=== PATIENT | female | born 1940 | race Caucasian/White ===

== ENCOUNTER 2019-08-02 17:52 | Inpatient (IN) | payer BC ==
[~2019-08-02] VITALS: Ht 165.1 cm; Wt 59.0 kg
[2019-08-02 17:59] VITALS: BP 103/76
[2019-08-02 20:03] LABS: ABSOLUTE MONOCYTES 0.7 thou/uL (0.0-1.2); BASOPHILS 0.4 %; EOSINOPHILS 0.1 %; HEMATOCRIT 33.4 % (37.0-47.0); HEMOGLOBIN 11.1 gm/dL (12.0-15.0); LYMPHOCYTES 9.6 %; MCH 26.9 pg (26.0-34.0); MCHC 33.1 g/dL (28.0-37.0); MCV 81.4 fL (80.0-100.0); MONOCYTES 6.4 %; MPV 7.4 fl. (7.2-11.1); NUCLEATED RBCS 0 /100WBC; PLATELET COUNT* 271 thou/uL (150-400); POLYS 83.5 %; RBC 4.11 mil/uL (4.20-5.00); RDW-CV 15.3 % (10.5-14.5); WBC 10.7 thou/uL (4.0-11.0)
[2019-08-02 20:10] LABS: ANION GAP 10 mmol/L (7-16); BUN 20 mg/dL (7-18); CALCIUM 8.9 mg/dL (8.5-10.1); CHLORIDE 102 mmol/L (98-107); CO2 27 mmol/L (21-32); CREATININE 0.8 mg/dL (0.6-1.3); GLUCOSE 135 mg/dL (70-99); POTASSIUM 3.6 mmol/L (3.5-5.1); SODIUM 139 mmol/L (136-145)
[2019-08-02 20:19] LABS: ALBUMIN 3.4 g/dL (3.4-5.0); ALKALINE PHOSPHATASE 213 U/L (46-116); SGOT 16 U/L (15-37); SGPT 17 U/L (30-65); TOTAL BILIRUBIN 0.3 mg/dL (<0.1-1.0); TOTAL PROTEIN 6.7 g/dL (6.4-8.2); TROPONIN-I LEVEL <0.06 ng/mL (<0.06)
[2019-08-02 20:54] LABS: URINE BILIRUBIN NEGATIVE (Negative); URINE BLOOD NEGATIVE (Negative); URINE CLARITY CLEAR; URINE COLOR YELLOW; URINE GLUCOSE-RANDOM NEGATIVE (Negative); URINE KETONES NEGATIVE (Negative); URINE LEUKOCYTES-REFLEX NEGATIVE (Negative); URINE NITRITE-REFLEX NEGATIVE (Negative); URINE PROTEIN NEGATIVE (Negative); URINE UROBILINOGEN 0.2 E.U./dl (0.2-1.0)
[2019-08-02] MEDS ORDERED: XANAX 0.25 MG0.25 MG PO (21:53)
[2019-08-02] MEDS ORDERED: BAYER CHEWABLE81 MG PO (22:23)
[2019-08-02] MEDS ORDERED: COLACE100 MG PO (22:23)
[2019-08-02] MEDS ORDERED: BENAZEPRIL-HCT1 EA10 PO (22:23)
[2019-08-02] MEDS ORDERED: BUSPIRONE HCL10 MG PO (22:23)
[2019-08-02] MEDS ORDERED: I-VITE PROTECT1 EACH PO (22:24)
[2019-08-02] MEDS ORDERED: LASIX 20 MG TAB20 MG PO (22:24)
[2019-08-02] MEDS ORDERED: PEPCID40 MG PO (22:24)
[2019-08-02] MEDS ORDERED: POTASSIUM20 PO (22:24)
[2019-08-02] MEDS ORDERED: IRON325 PO (22:24)
[2019-08-02] MEDS ORDERED: SERTRALINE HCL100 MG PO (22:25)
[2019-08-02] MEDS ORDERED: NORCO 5-325 TA1 EAC1 PO (22:25)
[2019-08-02 22:29] VITALS: BP 110/56
[2019-08-02 22:43] LABS: APTT 26.8 Seconds (25.0-31.3); PROTIME 10.7 Seconds (9.20-11.50)
--- NOTE | 2019-08-03 | NUR ---
ASSUMED CARE OF PT
[2019-08-03 03:12] LABS: ABSOLUTE LYMPHOCYTES 1.2 thou/uL (0.8-5.3); ABSOLUTE MONOCYTES 0.8 thou/uL (0.0-1.2); ABSOLUTE NEUTROPHILS 7.4 thou/uL (1.6-8.1); BASOPHILS 0.4 %; EOSINOPHILS 0.1 %; HEMATOCRIT 29.8 % (37.0-47.0); HEMOGLOBIN 9.8 gm/dL (12.0-15.0); LYMPHOCYTES 12.9 %; MCH 26.7 pg (26.0-34.0); MCHC 32.8 g/dL (28.0-37.0); MCV 81.4 fL (80.0-100.0); MONOCYTES 8.5 %; MPV 7.2 fl. (7.2-11.1); NUCLEATED RBCS 0 /100WBC; PLATELET COUNT* 247 thou/uL (150-400); POLYS 78.1 %; RBC 3.66 mil/uL (4.20-5.00); RDW-CV 15.6 % (10.5-14.5); WBC 9.5 thou/uL (4.0-11.0)
[2019-08-03 03:24] LABS: CALCIUM 8.9 mg/dL (8.5-10.1); CREATININE 0.6 mg/dL (0.6-1.3); POTASSIUM 3.9 mmol/L (3.5-5.1)
[2019-08-03 04:37] VITALS: BP 98/61
--- NOTE | 2019-08-03 06:26 | NUR ---
ORTHO CONSULT CALLED TO ANSWERING SERVICE AND COMPLETED IN COMPUTER.
[2019-08-03 09:54] VITALS: BP 104/59
[2019-08-03 14:54] VITALS: BP 108/61; BP 140/76
[2019-08-03 16:00] VITALS: BP 108/61
--- NOTE | 2019-08-03 16:42 | EKG ---
[place] [address] ELECTROCARDIOGRAM REPORT Name: MARTHA LAZO Room: [address] ADM IN M.R.#: [id number] Admission: 08/02/19 Attend Phys: Alex Jeffery MD Discharge: Date of : 38 Report #: [id number] THIS REPORT FOR: //name// [facility] ED Test Date: 2019-08-02 Test Time: 17:58:50 Pat Name: MATRHA LAZO Department: Room: [facility] Gender: F [employer] Receptionist: MEDIC STUDENT : 1940 Requested By: Nyla Tee Order Number: [id number] MD: Aubrey Montero Measurements Intervals [place] Rate: 79 P: 57 SD: 146 QRS: 18 QRSD: 100 T: 27 QT: 391 QTc: 449 Interpretive Statements Sinus rhythm Low voltage, precordial leads No previous ECG available for comparison Electronically Signed On 08-03-2019 16:41:58 CDT by Aubrey Montero [email or web address] <ELECTRONICALLY SIGNED> By: Aubrey Montero MD, [facility] 08/03/19 1641 1758 175 Aubrey Montero MD, FACC /EPI
--- NOTE | 2019-08-03 18:33 | NUR ---
PATIENT ARRIVED TO UNIT AT 1454 FROM PACU. PATIENT ALERT BUT NOT ANSWERING ANY QUESTIONS. PATIENTS SON AT BEDSIDE AND ANSWERING QUESTIONS FOR HER. PATIENT HAS BRUISING ON THE RIGHT SIDE OF HER FACE FROM A FALL. VSS ON 3 LITERS 02. PATIENTS SON STATED THAT SHE DOES NOT WEAR 02 AT HOME. HE ALSO STATED THAT SHE WAS SUPPOSED TO BE USING A WALKER AFTER HER HIP FRACTURE REPAIR BUT THAT SHE IS FORGETFUL AND THAT IS WHY SHE FELL, SHE WAS NOT USING IT. NO COMPLAINTS OF PAIN. FALL PRECAUTIONS IN PLACE. CALL LIGHT WITHIN REACH. WILL CONTINUE TO MONITOR.
[2019-08-03 21:40] VITALS: BP 110/66
[2019-08-04] VITALS (9 sets, daily range): BP systolic 76–120; BP diastolic 30–62
[2019-08-04 03:07] LABS: ABSOLUTE LYMPHOCYTES 0.9 thou/uL (0.8-5.3); ABSOLUTE MONOCYTES 1.4 thou/uL (0.0-1.2); BASOPHILS 0.3 %; CALCIUM 8.9 mg/dL (8.5-10.1); CREATININE 0.6 mg/dL (0.6-1.3); HEMATOCRIT 24.1 % (37.0-47.0); HEMOGLOBIN 8.1 gm/dL (12.0-15.0); LYMPHOCYTES 10.1 %; MCHC 33.5 g/dL (28.0-37.0); MCV 80.6 fL (80.0-100.0); MONOCYTES 14.9 %; MPV 7.3 fl. (7.2-11.1); NUCLEATED RBCS 0 /100WBC; PLATELET COUNT* 232 thou/uL (150-400); POLYS 74.7 %; POTASSIUM 4.1 mmol/L (3.5-5.1); RBC 2.99 mil/uL (4.20-5.00); RDW-CV 15.2 % (10.5-14.5); WBC 9.3 thou/uL (4.0-11.0)
--- NOTE | 2019-08-04 13:27 | OP ---
[address] [address] OPERATIVE REPORT Name: MARTHA LAZO Room: [address] IN M.R.#: [id number] Admission: 08/02/19 Attend Phys: Alex Jeffery MD Discharge: Date of : 38 Report #: [id number] THIS REPORT FOR: //name// CC: Alex Colon Lockhart DATE OF SERVICE: 08/03/2019 PREOPERATIVE DIAGNOSIS: Right shoulder surgical neck comminuted 3-part fracture. POSTOPERATIVE DIAGNOSIS: Right shoulder surgical neck comminuted 3-part fracture. SURGERY PERFORMED: Open reduction and internal fixation of the right humerus. SURGEON: Daryn Nuñez DO CONE RUNNER: Dr. Stephens. SECOND PARAFFIN PLANT OPERATOR: Dr. Tinsley. ANESTHESIA: General anesthetic. ANTIBIOTICS: The patient did receive Ancef 2 grams IV piggyback preoperatively. ESTIMATED BLOOD LOSS: 200 mL. COMPLICATIONS: None. DRAINS: None. SPECIMENS: None. GROSS FINDINGS: Prior to surgery, this patient had sustained a ground level fall without the use of her walker and complained of right shoulder pain, presented to the Emergency Room with a displaced fracture as stated above. The patient's son who is durable power of compliance attorney was present as well. The patient also had previously 2 months ago fractured her femur at another institution and had to have that surgically fixated. Her underlying dementia per her son is part of the problem as she tries to get up and ambulate without the walker. At this point in time, the surgery correlated exactly with the radiographic findings and post-placement of the Jeremi side plate for internal fixation demonstrated near anatomic reduction in the two views taken today. SURGERY IN DETAIL: The patient was taken to the operating [place] [address] OPERATIVE REPORT Name: MARTHA LAZO Room: [address] IN ..#: [id number] Admission: 08/02/19 Attend Phys: Alex Jeffery MD Discharge: Date of : 38 Report #: [id number] the table, given a general anesthetic and then while on the T-Max table was put in a 30-degree inclined position. She underwent a chlorhexidine prep and sterile draping for right arm shoulder surgery. At this point in time, the patient did have a timeout called and verified by everybody in the room in agreement for the right shoulder. Surgery now began with a deltopectoral incision with a 10 blade scalpel through the skin and subcutaneous tissues, retracting the cephalic vein laterally. Through this dissection, it was an obviously displaced 100% fracture, correlating with the radiographic findings in the ER. Upon removal of the biceps tendon, which was interposed between the fracture fragments after I did tenotomy of that, the fracture was more mobile and it was easily reduced now. Once this was accomplished, I did hold a Jeremi side plate to the humerus with K-wire fixation and it did demonstrate satisfactory position and the views taken. I now elected to transfix the side plate into position using AO technique. The patient did have a cortical fractured fragment of approximately 2 cm in length x 1 cm width that was punched down into the anterior aspect of the humerus with definitely a bone void. I did do Vitoss bone grafting and then pulled out window that she compressed down into the fracture site and put it back over top to seal it over. At this point in time, it had been irrigated with normal saline prior to closure. Her subcutaneous tissues were loosely closed with 2-0 Monocryl in inverted fashion followed with Stratafix and Dermabond Mepilex dressing to the right shoulder. The patient per Anesthesia tolerated the procedure well. I attest, I was present for all critical aspects of the surgery. Needle, instrument and sponge counts were correct. <ELECTRONICALLY SIGNED> By: Daryn Nuñez DO 08/04/19 1327 1306 [id number] Nuñez DO /merrill
--- NOTE | 2019-08-04 16:45 | NUR ---
BP LOW. PT RESTING IN BED. DR HURTADO NOTIFIED. IV BOLUS STARTED
--- NOTE | 2019-08-04 17:13 | NUR ---
PT UP IN CHAIR MOST OF SHIFT. PARTICIPATES IN THERAPIES. PAIN WELL CONTROLLED WITH PO MEDS. SLING TO RIGHT ARM. TOLERATING PO WELL. POOR FLUID INTAKE. ENCOURAGED PO FLUIDS. SORTO DRAINING CLEAR YELLOW URINE.
--- NOTE | 2019-08-04 17:45 | NUR ---
PER RN, PT.AND HER LIVE TOGETHER AT THE [facility] IN AN ASSISTED LIVING APT. BOTH HAVE DEMENTIA. SHE HAS A WALKER AND WC. WHEN SHE GOT UP DURING THE NIGHT SHE DID NOT USE HER WALKER AND FELL. SHE HAD FX HER HIP SEVERAL MONTHS AGO AND WENT TO [facility] FOR A SKILLED STAY. THEY WOULD LIKE FOR HER TO GO BACK THERE FOR SNF AT DISCHARGE. FAXED REFERRAL TO [facility]. CM WILL FOLLOW.
[2019-08-04 21:12] LABS: HEMATOCRIT 19.4 % (37.0-47.0); HEMOGLOBIN 6.5 gm/dL (12.0-15.0)
[2019-08-05] VITALS (9 sets, daily range): BP systolic 68–105; BP diastolic 33–58
--- NOTE | 2019-08-05 07:05 | NUR ---
PATIENT ALERT AND ORIENTED X 1-2. LESS ANXIOUS TONIGHT. LOW BP PERSISTED POST BOLUS FROM DAYSHIFT. PHYSICIAN NOTIFED WITH ORDERS FOR FURTHER BOLUS AND STAT HH WHICH RESULTED CRITICAL AT 2.7. FURTHER ORDERS FOR BLOOD TRANSFUSION WHICH WAS PROVIDED THROUGHOUT THE NIGHT AND COMPLETED AT 0650. PATIENT TOLERATED WELL. POST TRANSFUSION LAB PENDING. LAST BP 98/42. CONTINUOUS OXIMITRY WITH TRANSFUSION AND O2 INITIALLY AT 2L/MIN FOR SLEEPING SAT OF 90%. O2 WEANED OFF DURING SECOND UNIT AND SATS REMAINED 98-100% ON ROOM AIR. DRESSING RIGHT ARM CLEAN AND DRY. SLING PRESENT. CIRCULATION CHECKS WITHIN NORMAL LIMITS. PAIN CONTROL ADEQUATE WITH SCHEDULED NAPROXIN AND TYLENOL. CONTINUE TO MONITOR.
[2019-08-05 10:05] LABS: ABSOLUTE LYMPHOCYTES 0.8 thou/uL (0.8-5.3); ABSOLUTE MONOCYTES 0.7 thou/uL (0.0-1.2); ABSOLUTE NEUTROPHILS 4.8 thou/uL (1.6-8.1); BASOPHILS 0.6 %; EOSINOPHILS 0.4 %; HEMATOCRIT 26.2 % (37.0-47.0); HEMOGLOBIN 8.9 gm/dL (12.0-15.0); LYMPHOCYTES 11.9 %; MCH 28.5 pg (26.0-34.0); MCHC 34.1 g/dL (28.0-37.0); MCV 83.5 fL (80.0-100.0); MONOCYTES 11.6 %; MPV 8.2 fl. (7.2-11.1); NUCLEATED RBCS 0 /100WBC; POLYS 75.5 %; RBC 3.14 mil/uL (4.20-5.00); RDW-CV 14.8 % (10.5-14.5); WBC 6.4 thou/uL (4.0-11.0)
[2019-08-05 10:06] LABS: PLATELET COUNT* 151 thou/uL (150-400)
[2019-08-05 10:18] LABS: CALCIUM 8.7 mg/dL (8.5-10.1); CREATININE 0.7 mg/dL (0.6-1.3); POTASSIUM 3.6 mmol/L (3.5-5.1)
--- NOTE | 2019-08-05 15:34 | NUR ---
[facility] CALLED AND SAID THEY DO NOT HAVE ANY SKILLED BED AVAILABILITY AND PROBABLY WILL NOT UNITL NEXT WEEK. MET WITH SON,MAI, WHO IS HER DPOA AND ELEAZAR PT'S D-I-L. AT BEDSIDE ALSO. PT.AND BOTH HAVE DEMENTIA. GAVE LIST OF CONTRACTED SNFS FOR PT.'S INSURANCE. SON STATED THEY WANT TO TOUR OTHER FACILITIES TO MAKE A GOOD CHOICE FOR PT. ASKED THEM TO CHOOSE 2 FACILITIES AFTER TOURING AND I WOULD MAKE REFERRALS. MAI EXPRESSED CONCERN THAT HE DID NOT WANT PT.DISCHARGED IF SHE WAS NOT STABLE. ASSURED HIM SHE WOULD NEED TO BE STABLE OR SNF WOULD SEND HER RIGHT BACK TO HOSPITAL. HE SAID WE NEED .THEY ARE AWARE THAT INSURANCE WILL NEED TO AUTHORIZE SKILLED STAY, WELL. ASKED TO TALK WITH CURTIS KEARNS. INFORMATION RELAYED TO HER.
[2019-08-05 16:11] LABS: HEMATOCRIT 23.9 % (37.0-47.0); HEMOGLOBIN 8.2 gm/dL (12.0-15.0)
--- NOTE | 2019-08-05 19:00 | NUR ---
PATIENT CONFUSED, FORGETFUL THRU SHIFT, TEARFUL AT TIME. FAMILY IN PERIODICALLY THRU SHIFT, STATE PATIENT IS TEARFUL QUITE A BIT. SEE MAR. SEE VS. SORTO CATH INTACT, PATENT, YELLOW URINE NOTED IN BAG. NEW IV PLACED, SEE INTERVENTION. IV FLUIDS CURRENTLY INFUSING ORDERED. PATIENT EATING FAIR THIS SHIFT. BIOLOGY INSTRUCTOR AND BLUNGER LOADER NOTIFIED OF BP READINGS THIS AM, DR NOTIFIED. REPORT GIVEN TO NEXT SHIFT. HRLY ROUNDS DONE.~TJRN
[2019-08-06 00:09] VITALS: BP 109/55
[2019-08-06 04:00] VITALS: BP 111/57
[2019-08-06 04:06] LABS: HEMATOCRIT 25.1 % (37.0-47.0); HEMOGLOBIN 8.5 gm/dL (12.0-15.0)
--- NOTE | 2019-08-06 06:58 | NUR ---
Oriented x 1 most of this shift. She appears to not understand where she was and was tearful. We did explain to her what was going on and she did relax. Pain meds given x 3 this shift and antianxiety med given x 1. Dressing to her Rt shoulder was dry and intact and sling in place and ice pack placed. Vitals have been stable,O2 sat 97%. She has slept well.
[2019-08-06 08:20] VITALS: BP 118/60
--- NOTE | 2019-08-06 08:30 | NUR ---
SPOKE WITH MAI,PT.S SON. HE HAS NOT HAD A CHANCE TO TOUR FACILITIES BUT PLANS TO THE AM. ASKED HIM TO LET CM PROGRAM COORDINATOR EXECUTIVE EDUCATION KNOW WHICH FACILITIES HE WOULD LIKE REFERRAL MADE TO 1ST AND 2ND CHOICE. HE SAID HE WOULD.
[2019-08-06] MEDS ORDERED: XANAX 0.25 MG0.25 MG PO (10:17)
[2019-08-06] MEDS ORDERED: TRAMADOL 50 MG50 MG PO (10:17)
--- NOTE | 2019-08-06 14:49 | NUR ---
SPOKE WITH PT'S SON/MAI. HE CHOSE [facility] OR [facility] FOR SNF. HE DOESN'T WANT [facility] OR [facility]. WILL NEED TO GET INSURANCE AUTH ALSO AND DO NOT ANTICIPATE IT WILL BE ABLE TO BE OBTAINED BEFORE [facility]. CALLED AND FAXED REFERRALS TO [facility] AND [facility]
--- NOTE | 2019-08-06 16:57 | NUR ---
PATIENT ALERT AND ORIENTED TO SELF AND PLACE. CONFUSED AND ANXIOUS AT TIMES. VITAL SIGNS STABLE ON ROOM AIR. IV PATENT AND SALINE LOCKED. PAIN BEING MANAGED WITH PO MEDICATION. DENIES NAUSEA AT THIS TIME. FALL PRECAUTIONS IN PLACE AND BED ALARM ON. SLING/IMMOBILIZER IN PLACE TO RIGHT ARM. ICE PACKS IN PLACE. HOURLY ROUNDS MAINTAINED THROUGHOUT THE SHIFT. CALL LIGHT WITHIN REACH. NURSING WILL CONTINUE TO MONITOR.
[2019-08-06 22:30] VITALS: BP 114/65
--- NOTE | 2019-08-07 07:14 | NUR ---
PT ORIENTED X 2-3. MEDS GIVEN ORDERED. PAIN MANAGED BY HYDROCODONE. C/O PAIN BUT UNABLE TO RATE. DRESSING TO RT SHOULDER C/D/I. PT DIDNT WANT TO WEAR SLING BECAUSE ITS ITCHY. HOURLY ROUNDING COMPLETED. WILL CONTINUE TO MONITOR.
[2019-08-07 08:10] VITALS: BP 108/79
--- NOTE | 2019-08-07 18:17 | NUR ---
ASSUMED CARE OF PATIENT AT APPROX 0730. ALERT AND ORIENTED X4. VSS ON ROOM AIR. PAIN MANAGED WIHT ORAL PAIN MEDICATIONS. PATIENT UP TO THE COMMODE WITH MODERATE ASSIST, VOIDING WITHOUT ISSUE. GAVE PATIENT BED BATH TODAY AND WASHED HER HAIR. NOTED SOME RED AREAS ON PATIENTS BACK THAT SHE STATED ARE ITCHING HER. APPLIED LOTION AFTER HER BATH AND NO OTHER COMPLAINTS OF ITCHING. RIGHT ARM IS SEVERELY SWOLLEN, ELEVATED ON 2 PILLOWS AND ICE APPLIED. NOTED BRUISING TO PATIENTS FACE, RIGHT ARM AND FLANK AREA, FROM FALL PRIOR TO ADMISSION. PATIENT ASSISTED WITH FOOD TRAY PREP AND ENGOURAGED TO EAT HER FOOD, PATIENT EATSA BETTER WHEN ENCOURAGED, ATE 50% OF BREAKFAST, 30% OF LUNCH, AND 90% OF HER DINNER. FALL PRECAUTIONS IN PLACE. CALL LIGHT WITHIN REACH. HOURLY ROUNDS COMPLETED. WILL CONTINUE TO MONITOR.
[2019-08-07 21:05] VITALS: BP 104/58
[2019-08-08 04:00] VITALS: BP 106/59
--- NOTE | 2019-08-08 04:59 | NUR ---
PATIENT ALERT AND ORIENTED X 1-3. TEARFUL AT HS. ABLE TO STATE WHEN SHE NEEDS TO VOID. UP TO BSC WITH MAX ASSIST OF 2. ANXIETY CONTRIBUTING TO INABILITY TO FOLLOW DIRECTIONS. RUE WITH SLING WHEN UP. ELEVATED ON PILOWS IN BED. EDEMA PERSISTS ESPECIALLY INTO THE HAND. DRESSING RIGHT UPPER ARM/SHOULDER CLEAN AND DRY. VITAL SIGNS STABLE. CONTINUE TO MONITOR.
[2019-08-08 08:00] VITALS: BP 119/62
[2019-08-08 15:12] VITALS: BP 109/57
--- NOTE | 2019-08-08 19:55 | NUR ---
ASSUMED CARE OF PATIENT AT APPROX 0730. ALERT AND ORIENTED X2-3. ASSESSMENT COMPLETED AND CHARTED. VSS ON ROOM AIR. PAIN MANAGED WITH ORAL MEDICATIONS. PATIENT VERY ANXIOUS AND TEARFUL ALL THROUGHOUT SHIFT TODAY, THIS IS HER BASELINE. ATTEMPTS TO ALEVIATE ANXIETY BY REASSURANCE, REDIRECTION AND USE OF ANTI-ANXIETY MEDICATIONS. PATIENT IS UP MAX ASSIST TO BEDSIDE COMMODE, SHE IS VERY FEARFUL OF FALLING AND WILL NOT ASSIST IN HER TRANSFERS. MEPILEX TO RIGHT ARM IS CLEAN, DRY, AND INTACT. THERE IS BRUISING TO THE RIGHT UPPER AND LOWER ARM, FLANK AND TO THE FACE. THERE IS SEVERE SWELLING TO THE ENTIRETY OF THE RIGHT ARM, ARM ELEVATED AND ICED. PATIENT NEEDS REINFORCEMENT OF EDUCATION TO KEEP THE ARM ELEVATED AND ICED IN ORDER TO REDUCE SWELLING. FALL PRECAUTIONS IN PLACE. CALL LIGHT WITHIN REACH. HOURLY ROUNDS COMPLETED. NURSING WILL CONTINUE TO MONITOR.
[2019-08-08 20:26] VITALS: BP 148/76
[2019-08-09 04:00] VITALS: BP 111/61
--- NOTE | 2019-08-09 05:32 | NUR ---
PT ANXIOUS, CONFUSED, TEARFUL AT START OF SHIFT. XANAX GIVEN WITH HS MEDS AND PT ABLE TO SLEEP WELL UNTIL 0400. PO PAIN MED GIVEN FOR R ARM PAIN WITH GOOD RESULT, ICE PACKS AND ELEVATION ON PILLOW. R ARM REMAINS BRUISED, EDEMATOUS. ABLE TO WIGGLE FINGERS AND MOVE ARM-NWB TO R ARM. MEPILEX DRSG CDI TO CHINO. NO LABS THIS MORNING. LFA SL. SACHIN HOSE REMOVED FOR SLEEP. UP WITH GB AND 2PERSON ASSIST TO BSC TO VOID THIS SHIFT. FOOT PUMP ON YASMINE FEET. DNR. AO TO SELF AND SITUATION. CM FOLLOWING FOR DC FACILITY PLAN. BED ALARM ON FOR SAFETY, CALL LITE IN EASY REACH.
[2019-08-09 08:00] VITALS: BP 132/85
--- NOTE | 2019-08-09 09:35 | NUR ---
RECEIVED VM FROM [facility]. FAXED HER UPDATED PT/OT ASSESSMENTS FROM [facility]. SHE WILL SEND ON TO INSURANCE FOR AUTH.
[2019-08-09] MEDS ORDERED: TRAMADOL 50 MG50 MG PO (10:19)
[2019-08-09] MEDS ORDERED: LIDOPATCH1 EACH TOP (10:19)
[2019-08-09] MEDS ORDERED: NORCO 5-325 TA1 EAC1 PO (10:19)
[2019-08-09 14:00] VITALS: BP 114/79
--- NOTE | 2019-08-09 18:38 | NUR ---
PT PLEASANTLY CONFUSED THROUGHOUT SHIFT. PAIN CONTROLLED WITH PO MEDS. PT VOIDING PER BSC. TOLERATING PO WELL. PLAN TO GO TO SNF WHEN INSURANCE APPROVED.
[2019-08-09 22:30] VITALS: BP 100/59
[2019-08-10 08:04] VITALS: BP 124/60
--- NOTE | 2019-08-10 08:27 | NUR ---
PATIENT VERY CONFUSED AND FORGETFUL. ALERT AND ORIENTED TO SELF. VSS ON RA. MEDICATIONS GIVEN ORDERED AND CHARTED. DRESSING TO RIGHT ARM IS C/D/I AND SLING IN PLACE WITH ARM ELEVATED. PATIENT HAS BEEN INCONTINENT OF BOWEL AND BLADDER AND ADAN CARE PERFORMED. IV IN LEFT FOREARM-SL. FALL PRECAUTIONS IN PLACE AND HOURLY ROUNDS MADE. WILL CONTINUE WITH PLAN OF CARE AND NURSING TO MONITOR.
[2019-08-10 10:33] VITALS: BP 124/60
--- NOTE | 2019-08-10 11:09 | NUR ---
PER [facility], SHE HAS RECEIVED INSURANCE AUTHORIZATION FOR SNF. SHE WILL AR[facility] FOR 1200. PT.TO EAT LUNCH HERE. SON,MAI, NOTIFIED OF DISCHARGE TIME. HE WILL FOLLOW PT.OVER TO SNF. CHART COPIED TO GO WITH PT. CURTIS CROCKER WILL CALL REPORT. [facility] FAXED DISCHARGE SUMMARY AND ORTHO ORDERS TO [id number].
--- NOTE | 2019-08-10 13:01 | NUR ---
PT DISCHARGED AND LEFT TO SNF BY [facility] AT 1245. REPORT CALLED AT 1155. IV OUT. PT STABLE UPON DISCHARGE. SCRIPTS SENT. PERSONAL BELONGINGS SENT WITH SON.
== END 2019-08-10 12:45 | DRG 492 ==
LOC: M.ERS 17:52 → M.TBA-ER 20:07 → M.ORTHSURG 20:07
PROVIDERS: Family Medicine; Internal Medicine; Nurse Practitioner Family; Orthopaedic Surgery; ADMIT Internal Medicine
PROC: 2W3AX1Z Immobilization of Right Upper Arm using Splint (ICD-10-PCS; principal; 2019-08-02)
PROC: 0PSC04Z Reposition Right Humeral Head with Internal Fixation Device, Open Approach (ICD-10-PCS; 2019-08-03)
PROC: 30233N1 Transfusion of Nonautologous Red Blood Cells into Peripheral Vein, Percutaneous Approach (ICD-10-PCS; 2019-08-04)
DX: S42.211A Unspecified displaced fracture of surgical neck of right humerus, initial encounter for closed fracture (principal); G92 Toxic encephalopathy; D62 Acute posthemorrhagic anemia; F03.90 Unspecified dementia, unspecified severity, without behavioral disturbance, psychotic disturbance, mood disturbance, and anxiety; F41.9 Anxiety disorder, unspecified; S00.83XA Contusion of other part of head, initial encounter; W18.30XA Fall on same level, unspecified, initial encounter; Y93.01 Activity, walking, marching and hiking; R53.81 Other malaise; I95.9 Hypotension, unspecified; Z79.899 Other long term (current) drug therapy; Z79.82 Long term (current) use of aspirin; Y92.129 Unspecified place in nursing home as the place of occurrence of the external cause; Y99.9 Unspecified external cause status

== ENCOUNTER 2019-09-15 19:36 | Emergency (ER) | payer BC ==
[~2019-09-15] VITALS: Ht 165.1 cm; Wt 63.7 kg
[~2019-09-15 19:36] MED LIST: BAYER CHEWABLE81 MG PO; BENAZEPRIL-HCT1 EA10 PO; BUSPIRONE HCL10 MG PO; COLACE100 MG PO; I-VITE PROTECT1 EACH PO; IRON325 PO; LASIX 20 MG TAB20 MG PO; LIDOPATCH1 EACH TOP; NORCO 5-325 TA1 EAC1 PO; PEPCID40 MG PO; POTASSIUM20 PO; SERTRALINE HCL100 MG PO; TRAMADOL 50 MG50 MG PO; XANAX 0.25 MG0.25 MG PO
[2019-09-15 22:58] VITALS: BP 110/58
--- NOTE | 2019-09-16 11:06 | EKG ---
[place] [address] ELECTROCARDIOGRAM REPORT Name: VIOLETMARTHA [id number] Admission: 09/15/19 Attend Phys: Discharge: 09/15/19 Date of : 38 Report #: [id number] THIS REPORT FOR: //name// [facility] ED Test Date: 2019-09-15 Test Time: 20:07:45 Pat Name: MARTHA LAZO Department: Room: Gender: F Gamma Ray Operator: JH : 1940 Requested By: Amalia Wick Order Number: [id number] MD: Aubrey Montero Measurements Intervals [place] Rate: 77 P: 47 AR: 150 QRS: 3 QRSD: 104 T: 11 QT: 392 QTc: 444 Interpretive Statements Sinus rhythm Low voltage, precordial leads Compared to ECG 08/02/2019 17:58:50 No significant changes Electronically Signed On 09-16-2019 11:06:25 EARLY INTERVENTIONIST by Aubrey Montero [email or web address] <ELECTRONICALLY SIGNED> By: Aubrey Montero MD, [facility] 09/16/19 1106 06 06 Aubrey Montero MD, FACC /EPI
== END 2019-09-15 22:45 | disposition home or self-care (01) ==
LOC: M.ERS 19:36
DX: M54.6 Pain in thoracic spine (principal); M79.621 Pain in right upper arm; R60.9 Edema, unspecified; F41.9 Anxiety disorder, unspecified; F03.90 Unspecified dementia, unspecified severity, without behavioral disturbance, psychotic disturbance, mood disturbance, and anxiety; W18.39XA Other fall on same level, initial encounter; Y93.89 Activity, other specified; Y92.89 Other specified places as the place of occurrence of the external cause; Y99.8 Other external cause status

== ENCOUNTER 2019-09-28 15:53 | Emergency (ER) | payer BC ==
[~2019-09-28] VITALS: Ht 157.5 cm; Wt 59.0 kg
[2019-09-28 16:22] LABS: ABSOLUTE EOSINOPHILS 0.1 thou/uL (0.0-0.7); ABSOLUTE LYMPHOCYTES 1.2 thou/uL (0.8-5.3); ABSOLUTE MONOCYTES 0.6 thou/uL (0.0-1.2); ABSOLUTE NEUTROPHILS 3.4 thou/uL (1.6-8.1); BASOPHILS 0.6 %; EOSINOPHILS 1.1 %; HEMATOCRIT 33.6 % (37.0-47.0); HEMOGLOBIN 11.1 gm/dL (12.0-15.0); MCH 26.9 pg (26.0-34.0); MCHC 32.9 g/dL (28.0-37.0); MCV 81.7 fL (80.0-100.0); MONOCYTES 10.7 %; MPV 6.8 fl. (7.2-11.1); NUCLEATED RBCS 0 /100WBC; PLATELET COUNT* 326 thou/uL (150-400); POLYS 64.6 %; RBC 4.12 mil/uL (4.20-5.00); RDW-CV 16.9 % (10.5-14.5); WBC 5.3 thou/uL (4.0-11.0)
[2019-09-28 16:47] LABS: CALCIUM 9.2 mg/dL (8.5-10.1); CREATININE 0.8 mg/dL (0.6-1.3); POTASSIUM 4.1 mmol/L (3.5-5.1)
[2019-09-28 16:52] LABS: ALBUMIN 3.1 g/dL (3.4-5.0); TOTAL BILIRUBIN 0.2 mg/dL (<0.1-1.0); TOTAL PROTEIN 6.8 g/dL (6.4-8.2)
[2019-09-28 18:43] VITALS: BP 122/65
== END 2019-09-28 19:37 | disposition home or self-care (01) ==
LOC: M.ERS 15:53
PROVIDERS: Family Medicine
DX: S22.41XA Multiple fractures of ribs, right side, initial encounter for closed fracture (principal); S20.221A Contusion of right back wall of thorax, initial encounter; F41.9 Anxiety disorder, unspecified; F03.90 Unspecified dementia, unspecified severity, without behavioral disturbance, psychotic disturbance, mood disturbance, and anxiety; W18.39XA Other fall on same level, initial encounter; Y93.89 Activity, other specified; Y92.128 Other place in nursing home as the place of occurrence of the external cause; Y99.8 Other external cause status

== ENCOUNTER 2019-11-06 11:57 | Emergency (ER) | payer BC ==
[~2019-11-06] VITALS: Ht 165.1 cm; Wt 59.0 kg
[2019-11-06] MEDS ORDERED: FLORANEX TABLE1 EACH PO (12:29)
[2019-11-06] MEDS ORDERED: DORYX MPC120 MG PO (12:32)
[2019-11-06 12:54] LABS: ABSOLUTE BASOPHILS 0.1 thou/uL (0.0-0.2); ABSOLUTE LYMPHOCYTES 1.3 thou/uL (0.8-5.3); ABSOLUTE MONOCYTES 0.9 thou/uL (0.0-1.2); BASOPHILS 0.6 %; EOSINOPHILS 0.3 %; HEMATOCRIT 35.4 % (37.0-47.0); HEMOGLOBIN 11.8 gm/dL (12.0-15.0); LYMPHOCYTES 12.4 %; MCH 25.7 pg (26.0-34.0); MCHC 33.5 g/dL (28.0-37.0); MCV 76.9 fL (80.0-100.0); MONOCYTES 8.7 %; NUCLEATED RBCS 0 /100WBC; PLATELET COUNT* 317 thou/uL (150-400); RDW-CV 17.1 % (10.5-14.5); WBC 10.3 thou/uL (4.0-11.0)
[2019-11-06 13:04] LABS: CREATININE 0.8 mg/dL (0.6-1.3)
[2019-11-06 13:05] LABS: APTT 27.1 Seconds (25.0-31.3); PROTIME 10.5 Seconds (9.20-11.50)
[2019-11-06 13:08] LABS: ALBUMIN 3.2 g/dL (3.4-5.0); TOTAL BILIRUBIN 0.3 mg/dL (<0.1-1.0); TOTAL PROTEIN 6.7 g/dL (6.4-8.2)
[2019-11-06 15:18] VITALS: BP 115/69
--- NOTE | 2019-11-08 08:35 | EKG ---
[place] [address] ELECTROCARDIOGRAM REPORT Name: MARTHA LAZO Room: [facility] Julian#: [id number] Admission: 11/06/19 Attend Phys: Discharge: 11/06/19 Date of : 38 Report #: [id number] THIS REPORT FOR: //name// [facility] ED Test Date: 2019-11-06 Test Time: 12:32:23 Pat Name: MARTHA LAZO Department: Room: Gender: F Mill Turner: : 1940 Requested By: Davi Ruiz Order Number: [id number] MD: Alejandro Oconnor Measurements Intervals [place] Rate: 76 P: 52 KS: 156 QRS: 13 QRSD: 100 T: 19 QT: 392 QTc: 441 Interpretive Statements Sinus rhythm Compared to ECG 09/15/2019 20:07:45 No significant changes Electronically Signed On 11-08-2019 8:35:15 FLUID POWER MECHANIC by Alejandro Oconnor [email or web address] <ELECTRONICALLY SIGNED> By: Alejandro Oconnor MD, [facility] 11/08/19 0835 1232 1232 Alejandro Oconnor MD, FACC /EPI
== END 2019-11-06 15:20 | disposition home or self-care (01) ==
LOC: M.ERS 11:57
PROVIDERS: Family Medicine
DX: S20.211A Contusion of right front wall of thorax, initial encounter (principal); S40.011A Contusion of right shoulder, initial encounter; F41.9 Anxiety disorder, unspecified; W18.39XA Other fall on same level, initial encounter; Y93.01 Activity, walking, marching and hiking; Y92.89 Other specified places as the place of occurrence of the external cause; Y99.8 Other external cause status